=== PATIENT | male | born 1930 | race Caucasian/White ===

== ENCOUNTER 2016-06-15 18:31 | Emergency (ER) | payer MEDICARE ==
[~2016-06-15] VITALS: Ht 177.8 cm; Wt 68.0 kg
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
[2016-06-15 19:34] VITALS: BP 137/78
--- NOTE | 2016-06-16 09:26 | EKG ---
[facility] [address] [place] [address] Test Date: 2016-06-15 Test Time: 18:46:23 Pat Name: KARL CHATTERJEE Department: Room: Gender: M [employer]: : [id number] Requested By: Olena LORENZANA Order Number: [id number] Reading MD: Measurements Intervals [place] Rate: 109 P: 35 [place]: 186 QRS: 17 QRSD: 84 T: 8 QT: 328 QTc: 443 Interpretive Statements SINUS TACHYCARDIA NO SPECIFIC ECG ABNORMALITIES RI6.01 No previous ECG available for comparison
== END 2016-06-15 20:15 | disposition home or self-care (01) ==
LOC: ER 18:31
DX: E11.65 Type 2 diabetes mellitus with hyperglycemia (principal); E11.39 Type 2 diabetes mellitus with other diabetic ophthalmic complication; H40.9 Unspecified glaucoma; Z98.890 Other specified postprocedural states; Z90.49 Acquired absence of other specified parts of digestive tract
CPT/HCPCS: 82947; 93005; 99283-25